=== PATIENT | female | born 1990 | race Hispanic/Latino ===

== ENCOUNTER 2023-12-16 10:04 | Inpatient (IN) | payer MEDICAID ==
[~2023-12-16] VITALS: Ht 147.3 cm; Wt 77.6 kg
[~2023-12-16 10:04] MED LIST: PNV1TABL17 PO
[2023-12-16 10:46] LABS: APPEARANCE,URINE CLOUDY (CLEAR); BILIRUBIN,URINE NEGATIVE (NEGATIVE); COLOR,URINE YELLOW (YELLOW); GLUCOSE, URINE (UA) NEGATIVE (NEGATIVE); KETONES,URINE NEGATIVE (NEGATIVE); LEUKOCYTE ESTERASE ,URINE NEGATIVE Leu/uL (NEGATIVE); NITRATE,URINE NEGATIVE (NEGATIVE); OCCULT BLOOD,URINE NEGATIVE (NEGATIVE); PH,URINE 6.5 (5.0-8.0); PROTEIN,URINE 20 mg/dL (NEGATIVE); UROBILINOGEN,URINE 0.2 mg/dL (0.2-1.0)
[2023-12-16 10:48] LABS: ADD UA MICROSCOPIC YES
[2023-12-16] MEDS ORDERED: ceFAZolin SODIUM 2 GM VIAL IVP PRN (11:30)
[2023-12-16 11:47] LABS: BACTERIA,URINE FEW /HPF (None Seen); MUCUS,URINE FEW LPF (None Seen); SQUAMOUS EPITHELIAL CELL,UR MANY /HPF (0-2)
[2023-12-16 11:49] LABS: HEMATOCRIT 32.7 % (36-48); MEAN CORPUSCULAR HEMOGLOBIN 26.2 pg (27.0-33.0); MEAN CORPUSCULAR HGB CONC 31.8 g/dL (32.0-36.0); MEAN CORPUSCULAR VOLUME 82.4 fL (79-99); PLATELET COUNT (AUTO) 221 K/uL (130-400); RED BLOOD CELL COUNT(AUTO) 3.97 MIL/uL (4.00-5.50); RED CELL DISTRIBUTION WIDTH 23.3 % (11.0-15.5); WHITE BLOOD COUNT (AUTO) 10.9 K/uL (4.8-10.8)
[2023-12-16] MEDS: ondanSETRON 4MG INJ ONE (12:07)
[2023-12-16] MEDS ORDERED: dexaMETHasone SOD PHOSPHATE 10MG/ML 1ML VIAL ONE (12:07)
[2023-12-16] MEDS ORDERED: phenylEPHRINE HCL 10 MG/ML 1ML VIAL IV ONE (12:07)
[2023-12-16] MEDS ORDERED: FENTanyl CITRate PF 50 MCG/1 ML 2ML VIAL ONE (12:08)
[2023-12-16] MEDS ORDERED: morPHINE PF 100MG/10ML AMP IV ONE (12:08)
[2023-12-16 12:49] LABS: HIV 1&2 ANTIBODY Non-Reactive (Negative)
[2023-12-16 12:50] LABS: HIV-1 p24 Antigen Non-Reactive (Negative)
[2023-12-16] MEDS: ceFAZolin SODIUM 2 GM VIAL IVPB ONE (13:00)
[2023-12-16 13:13] LABS: RAPID PLASMA REAGIN NONREACTIVE (NONREACTIVE)
[2023-12-16] MEDS ORDERED: ondanSETRON 4MG INJ ONE (14:08)
[2023-12-16] MEDS: DiphenhydrAMINE HCL 50 MG/ML VIAL ONE (14:46)
[2023-12-16] MEDS ORDERED: MEPERIDINE-PF 75 MG/ML SYG IM PRN (15:00)
[2023-12-16] MEDS ORDERED: 0.9%NACL 10ML VIAL IVP PRN (15:00)
[2023-12-16 16:00] VITALS: BP 106/56; PULSE 72; RESP 20; TEMP 97.8
[2023-12-16] MEDS: CALDOLOR 800MG+NS 250ML 250 ML IV SCH (16:23)
[2023-12-16] MEDS ORDERED: MEPERIDINE-PF 25 MG/ML SYG IV PRN (17:30)
[2023-12-16] MEDS: PROMETHAZINE HCL 25 MG/ML 1ML AMPULE IM PRN (17:38)
[2023-12-16 19:50] VITALS: BP 109/57; PULSE 82; RESP 20; TEMP 97.9
[2023-12-16] MEDS: ceFAZolin SODIUM 2 GM VIAL IVPB SCH (20:49)
[2023-12-16] MEDS ORDERED: ceFAZolin SODIUM 1 GM VIAL IVPB SCH (21:00)
[2023-12-16 23:34] VITALS: BP 108/55; PULSE 72; RESP 18; TEMP 97.5
[2023-12-16] MEDS: DiphenhydrAMINE HCL 25 MG CAPSULE PO PRN (23:34)
[2023-12-17] VITALS (7 sets, daily range): BP systolic 99–135; BP diastolic 47–79; PULSE 69–103; RESP 16–23; TEMP 97.2–98.5
[2023-12-17] MEDS ORDERED: DiphenhydrAMINE HCL 25 MG CAPSULE PO PRN (01:30)
[2023-12-17] MEDS ORDERED: acetaMINOPHEN 500 MG TABLET PO PRN (01:30)
[2023-12-17] MEDS ORDERED: HYDROcodone/APAP 5/325 1 TAB TABLET PO PRN (01:30)
[2023-12-17] MEDS ORDERED: LANOLIN 30GM OINTMENT TP PRN (01:30)
[2023-12-17] MEDS: DEXTROSE 5 %-0.45 % NACL 1,000 ML IV PRN (02:33)
[2023-12-17 07:19] LABS: HEMATOCRIT 27.3 % (36-48); MEAN CORPUSCULAR HEMOGLOBIN 26.1 pg (27.0-33.0); MEAN CORPUSCULAR HGB CONC 31.1 g/dL (32.0-36.0); MEAN CORPUSCULAR VOLUME 83.7 fL (79-99); RED BLOOD CELL COUNT(AUTO) 3.26 MIL/uL (4.00-5.50); WHITE BLOOD COUNT (AUTO) 12.4 K/uL (4.8-10.8)
[2023-12-17] MEDS ORDERED: BisaCODYL 10 MG SUPP.RECT RC PRN (09:00)
[2023-12-17] MEDS: doCUSate SODIUM 100 MG CAP PO SCH (09:00)
[2023-12-17] MEDS: ibuPROFEN 600 MG TABLET PO PRN (18:06)
[2023-12-17] MEDS: SIMETHICONE 80 MG TAB.CHEW PO PRN (20:22)
[2023-12-17] MEDS: acetaMINOPHEN WITH coDEINE 1 TAB TAB PO PRN (23:54)
[2023-12-18 03:13] VITALS: BP 103/72; PULSE 80; RESP 20; TEMP 98.4
[2023-12-18 08:00] VITALS: BP 118/72; PULSE 97; RESP 16; TEMP 98.3
[2023-12-18 11:55] VITALS: BP 109/72; PULSE 87; RESP 16; TEMP 98.2
== END 2023-12-18 14:35 | disposition home or self-care (01) | DRG 540 ==
LOC: EDH 10:12 → OBSVTOIN 10:13 → LDH 10:13 → WSH 17:30
PROVIDERS: ADMIT Obstetrics & Gynecology; ATTEND Obstetrics & Gynecology
PROC: 10D00Z1 Extraction of Products of Conception, Low, Open Approach (ICD-10-PCS; principal; 2023-12-16 13:00)
DX: O82 Encounter for cesarean delivery without indication (principal); Z37.0 Single live birth; Z3A.38 38 weeks gestation of pregnancy
CPT/HCPCS: 36415; 59510; 81001; 85027; 86592; 86701; 86850; 86900; 86901; 87340; 87390; A4344; G0378; J0690; J1100; J1200; J1741; J2274; J2371; J2405; J2550; J2590; J3010; J7042; J7120; Q0163; A4248; A4510; C1765; L0625